=== PATIENT | female | born 1965 | race Caucasian/White ===

== ENCOUNTER → 2016-06-24 | Outpatient (CLI) | payer OTHER ==
--- NOTE | 2016-06-24 10:34 | DX ---
Bilateral Sacroiliac Joints, Three Views History: Pain, arthritis, M54.5. Findings: Sclerotic changes bilateral sacroiliac joints consistent with mild osteoarthritis. No evide nce of bony fusion. No evidence of sacral fracture or destructive osseous lesions. Impression: Mild bilateral degenerative sacroiliitis.
== END ==
LOC: BMCIMAGING 09:48
PROVIDERS: ATTEND Internal Medicine Rheumatology
DX: M46.1 Sacroiliitis, not elsewhere classified (principal)

== ENCOUNTER → 2016-10-06 | Outpatient (CLI) | payer OTHER | LOC: BMCIMAGING 08:33 | DX: Z12.31 Encounter for screening mammogram for malignant neoplasm of breast (principal) | CPT/HCPCS: G0202 ==

== ENCOUNTER → 2017-10-21 | Outpatient (CLI) | payer OTHER | LOC: BMCIMAGING 12:33 | PROVIDERS: ATTEND Internal Medicine | DX: Z12.31 Encounter for screening mammogram for malignant neoplasm of breast (principal) ==